=== PATIENT | male | born 1995 | race Caucasian/White ===

== ENCOUNTER 2020-04-13 10:51 | Emergency (ER) | payer OTHER, SELFPAY ==
--- NOTE | ~2020-04-13 | XR_ITS ---
EXAMINATION: XR chest 1V portable EXAM DATE: 04/13/2020 11:55 INDICATION: Cough, chest tightness, headache. TECHNIQUE: Portable AP frontal chest x-ray was obtained. There is no prior study for comparison. FINDINGS: The lungs are clear. There are no pleural effusions. The cardiomediastinal silhouette is within normal limits. There is no pneumothorax suspected. The bones and soft tissues are unremarkab le. IMPRESSION: No acute cardiopulmonary findings. Reviewed, dictated and finalized at location A. CY ANALYST
--- NOTE | 2020-04-13 10:58 | ECG_ITS ---
Measurements Intervals [place] Rate: 106 P: 66 TN: 147 QRS: 76 QRSD: 93 T: 55 QT: 321 QTc: 427 Interpretive Statements S[address]US T[address] ELEVATION IN ANTEROLAT/INF LEADS- PROBABLY EARLY REPOLARIZATION MINIMAL Q WAVES- INFERIOR LEADS BASELINE ARTIFACT- V4-V6 ABNORMAL ECG Electronically Signed On 04-13-2020 11:44:01 [employer] by Jacob Noel D.O.
[2020-04-13 11:10] VITALS: BP 149/81; PULSE 111; RESP 18; TEMP 36.6; O2SAT 97
[2020-04-13 11:30] LABS: Basophils Absolute Auto 0.1 K/mm3 (0.0-0.1); Basophils Percent Auto 0.8 % (0.2-1.2); Eosinophils Absolute Auto 0.7 K/mm3 (0-0.3); Eosinophils Percent Auto 8.2 % (0-4.4); Hemoglobin 16.6 g/dL (14.0-18.0); Immature Granulocyte Absolute 0.03 K/mm3 (0.00-0.031); Immature Granulocyte Percent A 0.3 % (0-0.5); Lymphocytes Absolute Auto 2.36 K/mm3 (0.9-3.2); Lymphocytes Percent Auto 26.8 % (18.3-44.2); Mean Corpuscular HGB Conc 33.2 g/dl (32-36); Mean Corpuscular Hemoglobin 29.2 pg (26-34); Mean Corpuscular Volume 87.9 fl (80-100); Mean Platelet Volume 8.9 fl (7.4-10.4); Monocytes Absolute Auto 0.6 K/mm3 (0.1-0.6); Monocytes Percent Auto 7.3 % (2.6-8.5); Neutrophils Percent Auto 56.6 % (45.5-73.1); Platelet Count Result 248 k/mm3 (150-375); Red Blood Count 5.69 M/mm3 (4.6-6.20); Red Cell Distribution Width 12.7 % (11.5-14.5); White Blood Count 8.8 K/mm3 (4.5-10.0)
[2020-04-13 11:43] LABS: Anion Gap 9 mmol/L (8-16); Blood Urea Nitrogen 14 mg/dL (9-20); Calcium 9.1 mg/dL (8.4-10.2); Carbon Dioxide 26 mmol/L (22-30); Chloride 103 mmol/L (98-107); Estimated CRCL calculation 133 ml/min; Estimated Glomerular Filt Rate > 60; Glucose 143 mg/dL (75-110); Potassium 4.2 mmol/L (3.4-5.0); Sodium 138 mmol/L (137-145)
[2020-04-13] MEDS: ALBUTEROL SULFATE (*SP) AEROSOL 1 PUFF 6 PUFF INHALATION (12:00)
--- NOTE | 2020-04-13 12:21 | ED.SOB ---
HPI - SOB/Dyspnea General Chief Complaint: Shortness of Breath/Dyspnea Stated Complaint: sob, chest pain, headache Time Seen by Provider: 04/13/20 11:41 Source: patient Mode of arrival: ambulatory Limitations: no limitations History of Present Illness HPI Narrative: This patient is a 24 year old male with history of asthma who presents for evaluation of chest pain and headache. He developed cough, sore throat, sinus drainage 1 week ago. He reports he has had midsternal chest pain x 2 days. He only has this pain when he coughs or moves. He also reports shortness of breath. He also reports frontal headache . He is unsure of a fever. He denies nausea, vomiting, diarrhea. He denies sick contacts. [place] town. Related Data Allergies Allergy/AdvReac Type Severity Reaction Status Date / Time No Known Allergies Allergy Verified 04/13/20 11:15 Review of Systems Review of Systems: All systems reviewed & are unremarkable except as noted in HPI and below Constitutional: Constitutional: Denies chills, Reports fatigue and Denies fever(s) ENT: Reports nasal congestion and Reports sore throat Cardiovascular: Cardiovascular: Reports chest pain Respiratory: Respiratory: Reports cough, Reports dyspnea and Reports wheezing Gastrointestinal: Gastrointestinal: Denies abdominal pain, Denies nausea and Denies vomiting Neurologic: Reports headache(s) [facility] Past Medical History Medical History (Updated 04/13/20 @ 13:36 by Lashanda Kaur MD) Asthma Surgical History Surgical History (Updated 04/13/20 @ 12:26 by Lashanda Kaur MD) No pertinent past surgical history Social History Social History (Updated 04/13/20 @ 12:26 by Lashanda Kaur MD) Smoking status: Never smoker Exam Const: General: no acute distress Nutritional Appearance: obese Orientation/consciousness: patient oriented x3 HENMT: Head: normocephalic and atraumatic Ears: TM's normal bilaterally Face and sinus: face symmetric Mouth: Yes Normal oral and palatal mucosa present, Yes lip normal, Yes oropharynx normal and Yes moist mucous membranes Eyes: Pupils: Equal, round and reactive pupils present EOM: EOMs intact bilaterally Chest: Chest palpation & inspection: normal inspection of the chest Resp: Effort & Inspection: normal respiratory effort Auscultation: wheezes expiratory wheezes, left upper and right upper Cardio: Rate: tachycardic Rhythm: regular rhythm Heart sounds: no murmurs GI: GI Palp: Yes Soft to palpation, Yes Tenderness to palpation present (GI) (LLQ) and No Guarding due to palpation present (GI) Auscultation: normal bowel sounds Skin: General skin exam: normal color Rashes: no rashes Neuro: General: patient oriented x3, moves all extremities and CN's II-XI intact bilaterally Course Reevaluation(s) Reevaluation #1: Patient states he feels much better. He is no longer cough or wheezing. He is ready for discharge home. I reviewed test are unremarkable but I suspect he may have covid. HE will quarantine. Date: 04/13/20 Time: 13:33 Vital Signs Vital signs: Vital Signs Temperature 97.8 F 04/13/20 11:10 Pulse Rate 111 H 04/13/20 11:10 Respiratory Rate 18 04/13/20 11:10 Blood Pressure 149/81 H 04/13/20 11:10 Pulse Oximetry 97 04/13/20 11:10 Temperature 97.8 F 04/13/20 11:10 Pulse Rate 97 04/13/20 13:57 Respiratory Rate 18 04/13/20 13:57 Blood Pressure 140/72 04/13/20 13:57 Pulse Oximetry 98 04/13/20 13:57 MDM - SOB/Dyspnea Lab Data Attestation: I reviewed the patient's lab results. Result diagrams: 04/13/20 11:19 04/13/20 11:19 Labs: Lab Results 04/13/20 04/13/20 04/13/20 Range/Units 11:18 11:19 11:19 WBC 8.8 (4.5-10.0) K/mm3 RBC 5.69 (4.6-6.20) M/mm3 Hgb 16.6 (14.0-18.0) g/dL Hct 50.0 (42.0-52.0) % MCV 87.9 (80-100) fl MCH 29.2 (26-34) pg MCHC 33.2 (32-36) g/dl RDW 12.7 (11.5-14
[2020-04-13 12:22] LABS: Alveolar/Arterial O2 Gradient 28.1 mmHg; Base Excess ABG -1.5 mEq/l (+/-2.0); Carboxyhemoglobin 0.4 % THb (0-2.0); Fractional Inspired Oxygen 21 %; HCO3 ABG 23.1 mEq/l (22.0-26.0); Methemoglobin ABG 0.4 %THb (0-1.5); Oxygen Content ABG 22.2 %vol (16.0-22.0); Oxygen Saturation ABG 95.1 % (95.0-100.0); Oxyhemoglobin 94.7 % THb (90.0-100.0); PCO2 ABG 38.8 mmHg (35.0-45.0); PO2 ABG 75.2 mmHg (80.0-100.0); PO2 FiO2 Ratio Arterial Blood 3.58 %; Reduced Hemoglobin 4.5 %THb (0-5.0); Total Hemoglobin 16.7 g/dL (12.0-18.0); pH ABG 7.392 (7.350-7.450)
[2020-04-13 12:23] LABS: Alanine Aminotransferase 31 U/L (4-50); Albumin Level 4.1 g/dL (3.5-5.1); Alkaline Phosphatase 121 U/L (38-126); Aspartate Amino Transferase 25 U/L (17-59); Bilirubin,Total 0.3 mg/dL (0.2-1.3); Lipase 55 U/L (23-300)
[2020-04-13 12:23] LABS: Device ROOM AIR; Modified Allen's Test Pass; Site Drawn RIGHT RADIAL
[2020-04-13] MEDS: ALBUTEROL SULFATE (*SP) INHALER 1 PUFF (12:25)
[2020-04-13 12:34] LABS: Troponin I < 0.012 ng/mL (0.000-0.034)
[2020-04-13 12:38] LABS: INR 0.8; Prothrombin Time 11.8 Seconds (11.1-14.7)
[2020-04-13 12:42] LABS: D Dimer 0.27 ug/mL (<0.48)
[2020-04-13] MEDS: LACTATED RINGERS 1,000 ML 999 ML IV CONT (12:44)
[2020-04-13 12:45] LABS: Lactic Acid Reflex 1.6 mmol/L (0.7-2.1)
[2020-04-13 13:14] LABS: Add Urine Microscopic? NO; Appearance Urine Clear (Clear); Bilirubin Urine Negative (Negative); Blood Urine Negative (Negative); Color Urine Yellow (Yellow); Glucose Urine UA Negative (Negative); Ketones Urine Negative (Negative); Leukocyte Esterase Ur Negative LEU/UL (Negative); Nitrate Urine Negative (Negative); Protein Urine Negative (Negative); Urobilinogen Urine Negative mg/dL (<2.0)
[2020-04-13 13:25] LABS: CRP < 0.5 mg/dL (<1.0)
[2020-04-13 13:29] LABS: Amphetamine Screen Urine Negative (Negative); Barbiturate Screen Urine Negative (Negative); Benzodiazepines Screen Urine Negative (Negative); Cannabinoid Screen Urine Negative (Negative); Cocaine Screen Urine Negative (Negative); Methadone Screen Urine Negative (Negative); Opiate Screen Urine Negative (Negative); Phencyclidine Screen Urine Negative (Negative)
[2020-04-13 13:57] VITALS: BP 140/72; PULSE 97; RESP 18; O2SAT 98; O2SAT 99
[2020-04-14 19:30] LABS: SARS-CoV-2 RNA PCR Negative
== END 2020-04-13 13:58 | disposition home or self-care (01) ==
PROVIDERS: Emergency Provider General Practice
DX: J45.901 Unspecified asthma with (acute) exacerbation (principal); Z20.828 Contact with and (suspected) exposure to other viral communicable diseases; R00.0 Tachycardia, unspecified; R94.31 Abnormal electrocardiogram [ECG] [EKG]
CPT/HCPCS: 36415; 36600; 71045; 80048; 80076; 80307; 81003; 82375; 82805; 83050; 83605; 83690; 83735; 84484; 85025; 85380; 85610; 85730; 86140; 87635; 87804; 87880; 93005; 96360; 99284; A9270; C9803; J7120; U0003